=== PATIENT | female | born 1990 | race Caucasian/White ===

== ENCOUNTER 2019-08-07 19:27 | Emergency (ER) | payer OTHER ==
[2019-08-07 19:43] VITALS: BP 120/63; PULSE 112; TEMP 97.7; BMI 20.7
[2019-08-07 19:58] LABS: EPITHELIAL CELLS MODERATE /hpf
[2019-08-07] MEDS ORDERED: KETOROLAC TROMETHAMINE 30 MG/1 ML VIAL IVPUSH ONE (20:02)
[2019-08-07] MEDS ORDERED: SODIUM CHLORIDE 1,000 ML IV STA (20:02)
[2019-08-07 21:01] LABS: BASO % 0.6 % (0-2.0); EOS % 0.1 % (0-4.5); HEMATOCRIT 31.9 % (32.4-45.2); HEMOGLOBIN 10.3 GM/dl (10.7-15.3); LYMPH % 13.3 % (8-40); MCH 21.8 pg (25.7-33.7); MCHC 32.3 g/dl (32.0-36.0); MEAN CELL VOLUME 67.6 fl (80-96); MEAN PLT VOLUME 8.9 fl (7.5-11.1); MONO % 5.4 % (3.8-10.2); NEUT % 80.6 % (42.8-82.8); PLATELET COUNT 272 K/MM3 (134-434); RBC 4.72 M/mm3 (3.60-5.2); RDW 14.5 % (11.6-15.6); WHITE BLOOD COUNT 7.7 K/mm3 (4.0-10.8)
[2019-08-07 21:03] LABS: ADD RBC MORPHOLOGY YES
[2019-08-07 21:12] LABS: ALBUMIN 3.9 g/dl (3.4-5.0); BILIRUBIN,TOTAL 0.7 mg/dl (0.2-1); CALCIUM 8.5 mg/dl (8.5-10); CREATININE 0.9 mg/dl (0.55-1.3); POTASSIUM 3.6 mmol/L (3.5-5.1); TOT PROT 6.2 g/dl (6.4-8.2)
[2019-08-07] MEDS ORDERED: CIPROFLOXACIN 500 MG TABLET (RESTRICTED TO ID) PO ONE (21:39)
[2019-08-07] MEDS ORDERED: CIPROFLOXACIN 250 MG TABLET (RESTRICTED TO ID) PO ONE (21:44)
[2019-08-07 22:17] LABS: ANISOCYTOSIS 1+; PLATELET ESTIMATE ADEQUATE
--- NOTE | 2019-08-07 23:43 | PDOC ---
Documentation entered by Kiara Alcantar SCRIBE, acting as scribe for Philly Wilhelm MD. Philly Wilhelm MD: This documentation has been prepared by the camilaeOrtiz Aiswarya, SCRIBE, under my direction and personally reviewed by me in its entirety. I confirm that the documentation accurately reflects all work, treatment, procedures, and medical decision making performed by me. History of Present Illness - General Chief Complaint: Pain, Acute Stated Complaint: BILATERAL FLANK PAIN Time Seen by Provider: 08/07/19 19:37 History Source: Patient Exam Limitations: No Limitations - History of Present Illness Initial Comments: 08/07/19 20:45 The patient is a 28 year old female, with a significant PMH of kidney stones ( starting at age 15) and migraine, who presents to the emergency department with intermittent bilateral flank pain that began a couple of weeks ago . The patient states she endorses associated symptoms of hematuria, fever of 103, dysuria, coughing, sore throat and body aches, no relief with Tylenol. Patient states she went to Dr. Oshea, her PCP, yesterday. At that time, plain film of the abdomen was performed and she was told that there was no indication of kidney stones. She also mentions that she has an appointment with her urologist , , tomorrow. Patient denies previous history of UTI The patient denies chest pain, shortness of breath, headache and dizziness. Denies fever, chills, nausea, vomit, diarrhea and constipation. Denies frequency and urgency. Allergies: NKDA Past surgical history: None reported Social history: None reported PCP: Dr. Oshea Past History - Past Medical History Allergies/Adverse Reactions: Allergies Allergy/AdvReac Type Severity Reaction Status Date / Time No Known Allergies Allergy Verified 08/07/19 19:29 Home Medications: Ambulatory Orders Ciprofloxacin HCl [Cipro] 500 mg PO BID #14 tablet 08/07/19 Doxycycline Hyclate 100 mg PO DAILY 08/07/19 COPD: No Kidney Stones: Yes (KID STONES) Psychiatric Problems: Yes (ANXIETY,DEPRESSION) - Psycho Social/Smoking Cessation Hx Smoking Status: No Smoking History: Never smoked Have you smoked in the past 12 months: No Number of Cigarettes Smoked Daily: 0 Information on smoking cessation initiated: No Hx Alcohol Use: No Drug/Substance Use Hx: No Substance Use Type: None Review of Systems - Review of Systems Able to Perform ROS?: Yes Comments:: 08/07/19 20:46 GENERAL/CONSTITUTIONAL: No fever or chills. No weakness. HEAD, EYES, EARS, NOSE AND THROAT:+sore throat No change in vision. No ear pain or discharge. CARDIOVASCULAR: No chest pain or shortness of breath. RESPIRATORY: +cough. No wheezing, or hemoptysis. GASTROINTESTINAL: No nausea, vomiting, diarrhea or constipation. GENITOURINARY: +flank pain. +hematuria. No dysuria and frequency. MUSCULOSKELETAL: No joint or muscle swelling or pain. No neck or back pain. SKIN: No rash NEUROLOGIC: No headache, vertigo, loss of consciousness, or change in strength/ sensation. ENDOCRINE: No increased thirst. No abnormal weight change. HEMATOLOGIC/LYMPHATIC: No anemia, easy bleeding, or history of blood clots. ALLERGIC/IMMUNOLOGIC: No hives or skin allergy. *Physical Exam - Vital Signs Last Vital Signs Temp Pulse Resp BP Pulse Ox 97.7 F 112 H 18 120/63 100 08/07/19 19:32 08/07/19 19:32 08/07/19 19:32 08/07/19 19:32 08/07/19 19:32 - Physical Exam 08/07/19 20:46 GENERAL: Awake, alert, and fully oriented, in no acute distress HEAD: No signs of trauma EYES: PERRLA, EOMI, sclera anicteric, conjunctiva clear ENT: + oropharynx clear mildly edematous without exudates. Auricles normal inspection, hearing grossly normal, nares patent.Moist mucosa NECK: Normal ROM, supple, no lymphadenopathy, JVD, or masses LUNGS: Breath sounds equal, clear to auscultation bilaterally. No wheezes, and no crackles HEART: Regular rate and rhythm, normal S1 and S2, no murmurs, rubs or gallops ABDOMEN: +Tenderness on palpation to the suprapubic region. Soft, normoactive bowel sounds. No guarding, no rebound. No masses BACK: +Bilateral flank pain on palpation. EXTREMITIES: Normal range of motion, no edema. No clubbing or cyanosis. No cords, erythema, or tenderness NEUROLOGICAL: Cranial nerves II through XII grossly intact. Normal speech, normal gait SKIN: Warm, Dry, normal turgor, no rashes or lesions noted. ED Treatment Course - LABORATORY CBC & Chemistry Diagram: 08/07/19 20:45 08/07/19 20:40 - ADDITIONAL ORDERS Additional order review: Laboratory Results 08/07/19 08/07/19 12 20:40 19:45 19:45 Sodium 141 Potassium 3.6 Chloride 109 H Carbon Dioxide 23 Anion Gap 9 BUN 9.0 Creatinine 0.9 Est GFR (CKD-EPI)AfAm 101.56 Est GFR (CKD-EPI)NonAf 87.63 Random Glucose 75 Calcium 8.5 Total Bilirubin 0.7 AST 18 ALT 14 Alkaline Phosphatase 44 L Total Protein 6.2 L Albumin 3.9 Urine Color Light Urine Appearance Slightly Urine pH 6.0 Urine Protein 2+ H Urine Glucose (UA) Negative Urine Ketones Negative Urine Blood 3+ H Urine Nitrite Negative Urine Bilirubin Negative Urine Urobilinogen 0.2 Ur Leukocyte Esterase 2+ Urine RBC 20-40 Urine WBC 40-60 Ur Transition Epith Cell Moderate Urine Bacteria Moderate POC Urine HCG, Qual Negative 08/07/19 20:45 RBC 4.72 MCV 67.6 L MCHC 32.3 RDW 14.5 MPV 8.9 Neutrophils % 80.6 Lymphocytes % 13.3 Monocytes % 5.4 Eosinophils % 0.1 Basophils % 0.6 - RADIOLOGY Radiology Studies Ordered: Category Date Time Status SPIRAL- RENAL-STONE CT [CT] Stat CT Scan 08/07/19 20:05 Completed - Medications Given in the ED: ED Medications Discontinued Medications Generic Name Dose Route Start Last Admin Trade Name Freq PRN Reason Stop Dose Admin Sodium Chloride 1,000 mls @ 1,000 mls/hr 08/07/19 20:02 08/07/19 20:09 Normal Saline - IV 08/07/19 21:01 1,000 mls/hr ASDIR STA Administration Ketorolac Tromethamine 30 mg 08/07/19 20:02 08/07/19 20:09 Toradol Injection - IVPUSH 08/07/19 20:03 Not Given ONCE ONE ED Progress Note - Progress Note Progress Note: This 28-year-old woman with a long history of kidney stones but no previous history of UTI presents with bilateral flank discomfort and 1 week of dysuria/ intermittent low-grade fever (99 -100 F). In the last 24 hours she noted nonproductive cough, sore throat and fever to 103F this afternoon. The patient took acetaminophen in late afternoon today. Exam as noted Urinalysis consistent with infected urine with 20-40 WBCs/20-40 RBCs/bacteria/ epithelial cells. Urine sent for culture and sensitivity. Laboratory evaluation otherwise is fairly unremarkable with normal WBC, mild anemia (previously diagnosed) and normal chemistry profile Noncontrast renal stone protocol CT performed to evaluate for evidence of obstructing kidney stone or complicated pyelonephritis Interpretation by Dr. García of the radiology staff: Nonobstructing 1 mm stone in the left renal pelvis; no evidence of ureteronephrosis or hydronephrosis. No other abnormality seen. In light of patient's symptoms and urinalysis results, patient will be started empirically on antibiotic treatment for presumed urinary tract infection. Since upper tract infection is possible, patient was started on fluoroquinolone : Cipro 500 mg twice a day with first dose given in the emergency room now. Patient has appointment already scheduled with Dr. Barth tomorrow. She should return to the ER sooner if she has increasing pain, vomiting or persistent high fever. Urine culture and sensitivity pending; patient informed that antibiotics may be changed depending on sensitivity results Meanwhile, the patient be contacted if the rapid influenza test is positive. Medical Decision Making - Medical Decision Making 08/08/19 04:54 Addendum: Rapid influenza negative for influenza A and influenza B Discharge - Discharge Information Problems reviewed: Yes Clinical Impression/Diagnosis: Urinary tract infection Qualifiers: Urinary tract infection type: site unspecified Hematuria presence: with hematuria Qualified Code(s): N39.0 - Urinary tract infection, site not specified ; R31.9 - Hematuria, unspecified Condition: Stable Disposition: HOME - Additional Discharge Information Prescriptions: Ciprofloxacin HCl [Cipro] 500 mg PO BID #14 tablet - Follow up/Referral Referrals: Nash Oshea MD [Primary Care Provider] - Gordon Barth MD [Staff Physician] - - Patient Discharge Instructions Patient Printed Discharge Instructions: Urinary Tract Infection Additional Instructions: Drink plenty of water; rest Cipro 500 mg twice a day for 1 week Follow-up with Dr. Barth tomorrow as scheduled We will call you if influenza test is positive and Tamiflu prescription will be called into pharmacy Return to ER if you have more severe pain, persistent high fever, vomiting - Post Discharge Activity
== END 2019-08-07 21:58 | disposition home or self-care (01) ==
LOC: FER 19:27
PROC: 3E0337Z Introduction of Electrolytic and Water Balance Substance into Peripheral Vein, Percutaneous Approach (ICD-10-PCS; principal; 2019-08-07)
DX: N39.0 Urinary tract infection, site not specified (principal); R31.9 Hematuria, unspecified; F41.8 Other specified anxiety disorders; Z87.442 Personal history of urinary calculi
CPT/HCPCS: 36415; 74176-TC; 80053; 81003; 81015; 81025; 85025; 87086; 87804; 99282-25; J7030

== ENCOUNTER 2023-03-22 11:25 | Emergency (ER) | payer BC, OTHER ==
[2023-03-22 11:52] VITALS: BP 117/69; PULSE 77; RESP 16; TEMP 97.8; BMI 21.7
[2023-03-22 12:25] LABS: HEMATOCRIT 37.1 % (32.4-45.2); HEMOGLOBIN 11.8 G/dL (10.7-15.3); MCH 21.2 pg (25.7-33.7); MCHC 31.8 g/dl (32.0-36.0); MEAN CELL VOLUME 66.8 fl (80-96); MEAN PLT VOLUME 8.3 fl (7.5-11.1); PLATELET COUNT 242.7 10^3/uL (134-434); RBC 5.56 10^6/uL (3.60-5.2); RDW 18.7 % (11.6-15.6); WHITE BLOOD COUNT 6.7 10^3/uL (4.0-10.8)
[2023-03-22 12:34] LABS: INR 1.09 (0.83-1.09); PROTHROMBIN TIME (PATIENT) 12.6 SEC (9.7-13.0)
[2023-03-22 12:52] LABS: ACTIVATED PTT 33.1 SECONDS (25.2-36.5)
[2023-03-22 12:54] LABS: ALBUMIN 4.7 g/dl (3.4-5.0); BILIRUBIN,TOTAL 1.3 mg/dl (0.2-1); BLOOD UREA NITROGEN 12.6 mg/dl (7-18); CALCIUM 9.2 mg/dl (8.5-10.1); CREATININE 0.7 mg/dl (0.6-1.3); MAGNESIUM 1.9 mg/dL (1.8-2.4); SGPT/ALT 10.6 U/L (7-52); TOT PROT 6.8 g/dl (6.4-8.2)
[2023-03-22 12:57] LABS: ANISOCYTOSIS 2+; MACROCYTOSIS 1+; OVALOCYTE 2+; PLATELET ESTIMATE ADEQUATE; TARGET CELLS 1+; TEAR DROP CELLS 1+
== END 2023-03-22 13:42 | disposition home or self-care (01) ==
LOC: FER 11:25
DX: R10.31 Right lower quadrant pain (principal); R10.32 Left lower quadrant pain; K59.00 Constipation, unspecified; R11.0 Nausea
CPT/HCPCS: 36415; 74177-TC; 80053; 81003; 83690; 83735; 84703; 85027; 85610; 85730; 86850; 86900; 86901; 87086; 99285-25; Q9967